=== PATIENT | male | born 1980 | race Caucasian/White ===

== ENCOUNTER 2016-10-31 20:13 | Emergency (ER) | payer OTHER ==
[2016-10-31 20:24] VITALS: BP 141/78
[2016-10-31] MEDS ORDERED: Bacitracin Oint 1 GM U/D Packet TOP ONE (20:41)
[2016-10-31] MEDS ORDERED: Bacitracin Oint 1 GM U/D Packet ONE (20:44)
[2016-10-31] MEDS ORDERED: Diphtheria,Pertussis(Acell),Tetanus Vaccine 0.5 ML SDV IM ONE (20:51)
--- NOTE | 2016-10-31 20:53 | EDM.PDOC ---
ED HPI GENERAL MEDICAL PROBLEM - General Chief Complaint: Laceration Stated Complaint: FISH HOOK ON SIDE OF LT THUMB Time Seen by Provider: 10/31/16 20:35 Source of Information: Reports: Patient History Limitations: Reports: No Limitations - History of Present Illness INITIAL COMMENTS - FREE TEXT/NARRATIVE: 36-year-old male with a fish hook embedded into the pulp of his left thumb. It has been present for an hour and a half. No other complaint or injury. Onset: Today Left 1-Thumb Pain Score (Numeric/FACES): 4 - Related Data Allergies Allergy/AdvReac Type Severity Reaction Status Date / Time No Known Allergies Allergy Verified 10/31/16 20:32 Home Meds: Home Meds NK [No Known Home Meds] 10/31/16 [History] Social & Family History - Tobacco Use Smoking Status *Q: Current Every Day Smoker Years of Tobacco use: 18 Packs/Tins Daily: 1 - Caffeine Use Caffeine Use: Reports: Soda - Recreational Drug Use Recreational Drug Use: No ED ROS GENERAL - Review of Systems Review Of Systems: ROS reveals no pertinent complaints other than HPI. ED EXAM, SKIN/RASH Exam: See Below Exam Limited By: No Limitations General Appearance: Alert, No Apparent Distress Respiratory/Chest: No Respiratory Distress Extremities: Other (Exam is otherwise limited to the left hand. The patient has one modesta of a treble hook embedded into the pulp of the thumb) Course - Vital Signs Last Recorded V/S: Last Vital Signs Temp 97.2 F 10/31/16 20:30 Pulse 83 10/31/16 20:30 Resp 16 10/31/16 20:30 BP 141/78 H 10/31/16 20:30 Pulse Ox 98 10/31/16 20:30 - Orders/Labs/Meds Orders: Active Orders 24 hr Category Date Time Status Vaccines to be Administered [RC] PER UNIT ROUTINE Care 10/31/16 20:51 Active Meds: Medications Discontinued Medications Generic Name Dose Route Start Last Admin Trade Name Veena PRN Reason Stop Dose Admin Bacitracin 1 dose 10/31/16 20:41 10/31/16 20:46 Bacitracin Oint 1 Gm TOP 10/31/16 20:42 1 dose ONETIME ONE Administration Bacitracin Confirm 10/31/16 20:44 10/31/16 20:56 Bacitracin Oint 1 Gm Administered 10/31/16 20:45 Not Given Dose 1 dose .ROUTE .STK-MED ONE Diphtheria/Tetanus/Acell Pertussis 0.5 ml 10/31/16 20:51 10/31/16 20:56 Adacel IM 10/31/16 20:52 0.5 ml .ONCE ONE Administration Lidocaine HCl 5 ml 10/31/16 20:41 10/31/16 20:45 Xylocaine-Mpf 1% INJECT 10/31/16 20:42 5 ml ONETIME ONE Administration Lidocaine HCl Confirm 10/31/16 20:44 10/31/16 20:56 Xylocaine-Mpf 1% Administered 10/31/16 20:45 Not Given Dose 5 ml .ROUTE .STK-MED ONE - Re-Assessments/Exams Free Text/Narrative Re-Assessment/Exam: 10/31/16 20:52 The area was sterilized with alcohol, a small amount of 1% lidocaine was infiltrated and the fishhook backed out with a needle gregg. Bacitracin and a Band-Aid was applied and the patient was given a TDap Booster. He will keep the wound covered and clean while healing. Departure - Departure Time of Disposition: 20:59 Disposition: Home, Self-Care 01 Condition: Good Clinical Impression: Puncture wound - injury [place] injury to finger Qualifiers: Encounter type: initial encounter Laterality: left Qualified Code(s): S69.92XA - Unspecified injury of left wrist, hand and finger(s), initial encounter - Discharge Information Instructions: Puncture Wound, [id number] Referrals: PCP,None [Primary Care Provider] - Forms: ED Department Discharge Care Plan Goals: Keep the wound covered and clean while healing. Recheck if concerns of infection or not healing satisfactorily. - My Orders Last 24 Hours: My Active Orders 10/31/16 20:51 Vaccines to be Administered [RC] PER UNIT ROUTINE - Assessment/Plan Last 24 Hours: My Active Orders 10/31/16 20:51 Vaccines to be Administered [RC] PER UNIT ROUTINE
== END 2016-10-31 21:02 | disposition home or self-care (01) ==
LOC: JP.ED 20:13
DX: S61.042A Puncture wound with foreign body of left thumb without damage to nail, initial encounter (principal); F17.210 Nicotine dependence, cigarettes, uncomplicated; Z23 Encounter for immunization; W45.8XXA Other foreign body or object entering through skin, initial encounter
CPT/HCPCS: 90715; 99283

== ENCOUNTER 2017-08-28 08:13 | Emergency (ER) | payer SELFPAY ==
[2017-08-28 08:38] VITALS: BP 133/83
--- NOTE | 2017-08-28 09:12 | EDM.PDOC ---
ED HPI GENERAL MEDICAL PROBLEM - General Chief Complaint: Upper Extremity Injury/Pain Stated Complaint: HURT RT SHOULDER Time Seen by Provider: 08/28/17 09:07 Source of Information: Reports: Patient History Limitations: Reports: No Limitations - History of Present Illness INITIAL COMMENTS - FREE TEXT/NARRATIVE: pt slipped on the floor at the [employer] and he landed on his rt elebow. The elebow is not painful but his rt shoulder is painful. He has pain by the ac joint of the rt shoulder. Onset: Other ( fell yesterday. ) Duration: Hour(s): Location: Reports: Upper Extremity, Right Associated Symptoms: Reports: No Other Symptoms Right Shoulder Pain Score (Numeric/FACES): 2 - Related Data Allergies Allergy/AdvReac Type Severity Reaction Status Date / Time No Known Allergies Allergy Verified 08/28/17 08:27 Home Meds: Home Meds NK [No Known Home Meds] 10/31/16 [History] Past Medical History - Past Health History Medical/Surgical History: Denies Medical/Surgical History Social & Family History - Tobacco Use Smoking Status *Q: Unknown Ever Smoked - Caffeine Use Caffeine Use: Reports: Soda Review of Systems - Review of Systems Review Of Systems: See Below Constitutional: Reports: No Symptoms Eyes: Reports: No Symptoms Ears: Reports: No Symptoms Nose: Reports: No Symptoms Mouth/Throat: Reports: No Symptoms Respiratory: Reports: No Symptoms Cardiovascular: Reports: No Symptoms GI/Abdominal: Reports: No Symptoms Genitourinary: Reports: No Symptoms Musculoskeletal: Reports: Other (pain in rt shoulder area. ) Skin: Reports: No Symptoms ED EXAM, GENERAL - Physical Exam Exam: See Below Free Text/Narrative:: Pt arrived with pain in the rt shoulder after a fall at the school. He landed on his elebow but is having pain in the ac area of the rt shoulder. Exam Limited By: No Limitations General Appearance: Alert, Mild Distress Ears: Normal TMs Nose: Normal Inspection Throat/Mouth: Normal Inspection Head: Atraumatic Neck: Normal Inspection Respiratory/Chest: No Respiratory Distress Cardiovascular: Regular Rate, Rhythm GI/Abdominal: Soft, Non-Tender (Male) Exam: Deferred Rectal (Males) Exam: Deferred Back Exam: Normal Inspection Extremities: Other (pt is having pain in the rt shoulder at the ac joint. He is particularluy uncomfortable when he is reaching overhead. ) Course - Vital Signs Last Recorded V/S: Last Vital Signs Temp 36.1 C 08/28/17 08:24 Pulse 61 08/28/17 08:24 Resp 14 08/28/17 08:24 BP 133/83 08/28/17 08:24 Pulse Ox 99 08/28/17 08:24 - Orders/Labs/Meds Orders: Active Orders 24 hr Category Date Time Status AC Joint w wo Weight Bi [CR] Stat Exams 08/28/17 09:05 Ordered Shoulder Comp Rt [CR] Stat Exams 08/28/17 09:05 Ordered - Re-Assessments/Exams Free Text/Narrative Re-Assessment/Exam: 08/28/17 09:49 xray of the shoulder and ac joint were neg. Departure - Departure Time of Disposition: 09:49 Disposition: Home, Self-Care 01 Condition: Fair Clinical Impression: Sprain of part of right shoulder girdle - Discharge Information Referrals: PCP,None [Primary Care Provider] - Forms: ED Department Discharge Care Plan Goals: cool pack shoulder, motrin 600mg tid for inflamation and discomfort, rtc to work Thursday avoid alot of overhead work. - My Orders Last 24 Hours: My Active Orders 08/28/17 09:05 AC Joint w wo Weight Bi [CR] Stat Shoulder Comp Rt [CR] Stat - Assessment/Plan Last 24 Hours: My Active Orders 08/28/17 09:05 AC Joint w wo Weight Bi [CR] Stat Shoulder Comp Rt [CR] Stat
--- NOTE | 2017-08-28 10:33 | CR ---
Shoulder Comp Rt CLINICAL HISTORY: Right shoulder pain FINDINGS: There is no acute fracture or dislocation in the right shoulder. Articular surfaces are smo oth. Impression: Negative
--- NOTE | 2017-08-28 10:35 | CR ---
AC Joint w wo Weight Bi CLINICAL HISTORY: Shoulder pain FINDINGS: The AC joints are relatively symmetric bilaterally. The there is no significant change with and without weightbearing IMPRESSION: No evidence of AC joint separation or laxity
== END 2017-08-28 10:19 | disposition home or self-care (01) ==
LOC: JP.ED 08:13
DX: S43.91XA Sprain of unspecified parts of right shoulder girdle, initial encounter (principal); W01.198A Fall on same level from slipping, tripping and stumbling with subsequent striking against other object, initial encounter; Y92.219 Unspecified school as the place of occurrence of the external cause
CPT/HCPCS: 73030-26-RT; 73030-RT; 73050; 73050-26; 99284

== ENCOUNTER 2023-06-10 07:54 | Day surgery (SDC) | payer OTHER ==
[2023-06-10] MEDS ORDERED: Propofol 200 MG/20 ML SDV ONE ×2 (08:05→09:50)
[2023-06-10] MEDS ORDERED: Midazolam 1 MG/ML 2 ML SDV ONE (08:05)
[2023-06-10] MEDS ORDERED: fentaNYL 100 MCG/2 ML SDV ONE (08:05)
[2023-06-10 08:32] LABS: HEMATOCRIT 44.7 % (38.4-49.7); HEMOGLOBIN 15.2 g/dL (12.9-16.9); MEAN CORPUSCULAR HEMOGLOBIN 29.1 pg (31.6-35.5); MEAN CORPUSCULAR VOLUME 85.6 fL (81.4-99.0); RED BLOOD CELL COUNT 5.22 M/uL (4.14-5.76); WHITE BLOOD CELL COUNT,WBC 5.7 K/uL (3.2-11.0)
[2023-06-10] MEDS: Lactated Ringers 1,000 ML IV SCH (08:32)
[2023-06-10 08:53] LABS: A/G RATIO 1.1 (1.2-2.2); ALANINE AMINOTRANSFERASE,ALT 58 U/L (12-78); ALBUMIN 4.2 g/dL (3.4-5.0); ALKALINE PHOSPHATASE 98 U/L (46-116); ASPARTATE AMNIOTRANSFERASE,AST 34 U/L (15-37); BILIRUBIN TOTAL 0.7 mg/dL (0.2-1.0); BLOOD UREA NITROGEN,BUN 14 mg/dL (7-18); CALCIUM 9.2 mg/dL (8.5-10.1); CARBON DIOXIDE,CO2 30 mmol/L (21-32); CHLORIDE,CL 100 mmol/L (100-108); CREATININE 1.4 mg/dL (0.8-1.3); EST CRCL DRUG DOSING (CG) 75.44 mL/min; ESTIMATED GFR 64 mL/min (>60); GLUCOSE RANDOM 109 mg/dL (74-106); POTASSIUM,K 3.9 mmol/L (3.6-5.2); PROTEIN TOTAL,TP 7.9 g/dL (6.4-8.2); SODIUM,NA 139 mmol/L (140-148)
[2023-06-10 08:56] LABS: ANION GAP 12.9 mmol/L (5.0-14.0)
[2023-06-10 11:12] VITALS: BP 138/85; PULSE 67
== END 2023-06-10 11:20 | disposition home or self-care (01) ==
LOC: JP.SDS 07:54
PROVIDERS: ATTEND Student in an Organized Health Care Education/Training Program
DX: K63.5 Polyp of colon (principal); K62.1 Rectal polyp; K92.2 Gastrointestinal hemorrhage, unspecified; Z79.899 Other long term (current) drug therapy; Z87.891 Personal history of nicotine dependence
CPT/HCPCS: 36415; 45380; 80053; 85027; 88305; J2250; J2704; J3010; J7120

== ENCOUNTER 2025-01-30 14:25 | Emergency (ER) | payer OTHER ==
[2025-01-30 14:39] VITALS: BP 154/84; PULSE 107
== END 2025-01-30 15:18 | disposition home or self-care (01) ==
LOC: JP.ED 14:25
DX: K64.8 Other hemorrhoids (principal); F17.200 Nicotine dependence, unspecified, uncomplicated; Z79.899 Other long term (current) drug therapy
CPT/HCPCS: 99283